=== PATIENT | male | born 1990 | race Caucasian/White ===

== ENCOUNTER 2023-07-18 13:19 | Emergency (ER) | payer SELFPAY ==
[~2023-07-18] VITALS: Ht 182.9 cm; Wt 77.1 kg
[2023-07-18 13:30] VITALS: BP 124/68; TEMP 98.6; O2SAT 100
[2023-07-18] MEDS ORDERED: IBUP-1957 PO (14:44)
== END 2023-07-18 14:50 | disposition home or self-care (01) ==
LOC: ER 13:19
DX: M79.672 Pain in left foot (principal); Z60.2 Problems related to living alone
CPT/HCPCS: 73610-TC